=== PATIENT | male | born 1950 | race Caucasian/White ===

== ENCOUNTER → 2017-01-03 | Outpatient (CLI) | payer BC ==
[2014-12-08 10:09] VITALS: BP 145/79
[~2017-01-03] MED LIST: BYSTOLIC5 MG PO; CLOP75TA PO; DABI150C PO; FENO145T2 PO; LISI10TA2 PO; METF10002 PO; PITA2TAB2 PO
--- NOTE | 2017-01-03 15:10 | CARD ---
APPROVED REPORT EXAM: Two-dimensional and M-mode echocardiogram with Doppler and color Doppler. Other Information Quality : GoodHR: 73bpm Rhythm : Atrial Fibrillation INDICATION Atrial Fibrillation Echo Enhancing Agent Agent/Amount Used: Agitated Saline 8mL RISK FACTORS Hypertension Obesity Hyperlipidemia Family History Diabetes 2D DIMENSIONS RVDd3.1 (2.9-3.5cm)Left Atrium(2D)4.1 (1.6-4.0cm) IVSd1.0 (0.7-1.1cm)Aortic Root(2D)3.1 (2.0-3.7cm) LVDd5.1 (3.9-5.9cm)LVOT Diameter2.5 (1.8-2.4cm) PWd1.0 (0.7-1.1cm)LVDs3.8 (2.5-4.0cm) FS (%) 25.0 %SV59.5 ml Aortic Valve AoV Peak Dequan.125.7cm/sAoV VTI28.6cm AO Peak GR.6.3mmHgLVOT Peak Dequan.88.1cm/s AO Mean GR.3mmHgAVA (VMAX)3.44cm2 Mitral Valve MV E Nwlehkvd83.9cm/sMV E Peak Gr.3mmHg MV DECEL [id number] A Xotnjhpm23.5cm/s MV E Mean Gr.1mmHgE/A Ratio0.8 MV A [id number] Pulmonary Valve PV Peak Jdnquxlz16.1cm/s Tricuspid Valve TR P. Gpclxdlq019qf/sTR Peak Gr.20mmHg Pulmonary Vein S1 Puddlwfh75.3cm/sD2 Nvuosfih80.9cm/s PVa [id number] LEFT VENTRICLE The left ventricle is normal size. There is normal left ventricular wall thickness. Left ventricle sy stolic function is normal. The Ejection Fraction is 50-55%. Atrial fibrillation noted, unable to asse ss left ventricular diastolic function. RIGHT VENTRICLE The right ventricle is normal size. There is normal right ventricular wall thickness. The right ventr icular systolic function is normal. ATRIA The left atrium size is normal. The right atrium size is normal. Injection of bubbles documented an i nteratrial shunt. AORTIC VALVE The aortic valve is normal in structure and function. Doppler and Color Flow revealed no significant aortic regurgitation. There is no significant aortic valvular stenosis. MITRAL VALVE The mitral valve leaflets are thickened. There is no evidence of mitral valve prolapse. There is no m itral valve stenosis. Doppler and Color Flow revealed trace mitral regurgitation. TRICUSPID VALVE Doppler and Color Flow revealed trace tricuspid regurgitation. The pulmonary artery systolic pressure is estimated at 23 mmHg. There is no pulmonary hypertension. PULMONIC VALVE The pulmonary valve is normal in structure and function. Doppler and Color Flow revealed no pulmonic valvular regurgitation. There is no pulmonic valvular stenosis. GREAT VESSELS The aortic root is normal in size. The ascending aorta is normal in size. The pulmonary artery is nor mal. The IVC is normal in size and collapses >50% with inspiration. PERICARDIAL EFFUSION There is no evidence of significant pericardial effusion. Critical Notification Critical Value: No <Conclusion> Left ventricle systolic function is normal. The Ejection Fraction is 50-55%. Pacer wire noted in right atrium and ventricle. Trace mitral regurgitation. Trace tricuspid regurgitation. The pulmonary artery systolic pressure is estimated at 23 mmHg. There is no evidence of significant pericardial effusion. Injection of bubbles documented an interatrial shunt.
== END | disposition home or self-care (01) ==
LOC: ECHO 08:52
PROVIDERS: ATTEND Internal Medicine Cardiovascular Disease
DX: I48.0 Paroxysmal atrial fibrillation (principal); I34.0 Nonrheumatic mitral (valve) insufficiency; I07.1 Rheumatic tricuspid insufficiency
CPT/HCPCS: C8929